=== PATIENT | female | born 1950 | race Caucasian/White ===

== ENCOUNTER → 2017-04-05 | Outpatient (CLI) | payer OTHER ==
[~2017-04-05] MED LIST: LISINOPRIL20 MG PO; METOPROLOL SUCC25 MG PO
--- NOTE | ~2017-04-05 | US6 ---
[facility] A Service of [facility] RADIOLOGY TEXT RESULTS PATIENT: VIANNEY PEÑALOZA LOCATION: [facility] : 46 UNIT #: [id number] AGE: [address]: Justin Castañeda MD SEX: F ORDER DR: [id number] [facility]. [place], [place] [address] [id number] O MR#: [id number] Acc #: [id number] NAME: VIANNEY PEÑALOZA : 1950 SEX: F STUDY DATE/TIME: 04/05/2017 11:45 UNIT: [facility] ROOM: STUDY DESCRIPTION: US Abdominal Limited Attending Physician: Justin Castañeda M.D. Ordering Physician: Justin Castañeda M.D. Primary Care Physician: Justin Castañeda M.D. MEDICAL IMAGING REPORT This report is preliminary unless electronic signature is present EXAM Bladder ultrasound INDICATIONS Bladder incontinence for 1 year TECHNIQUE Lopez-scale color sonographic images were obtained through the bladder, both pre and post void. FINDINGS Bladder does appear somewhat thick-walled with bladder wall measuring up to about 5 mm in thickness. However, I am uncertain if this is related to incomplete distension. Certainly the bladder does not appear particularly distended with urine. Certainly, however correlation with urinalysis and urine cultures is suggested. No post void residual is identified. IMPRESSION 1. Bladder does appears somewhat thick-walled. Some of this may be related to incomplete distension, but certainly correlation with urinalysis and cultures is recommended. 2. No significant postvoid residual is identified. Dictated by... June Lindquist M.D. THIS IS AN ELECTRONICALLY VERIFIED REPORT June Lindquist M.D. at 04/08/2017 4:50 PM AFF/ea [facility] A Service of [facility] RADIOLOGY TEXT RESULTS PATIENT: VIANNEY PEÑALOZA LOCATION: [facility] : 46 UNIT #: [id number] AGE: [address]: Justin Castañeda MD SEX: F ORDER DR: TD: 04/07/2017 12:33 JOB #: [id number] MEDICAL IMAGING REPORT Page 1 of 1 COPY
== END | disposition home or self-care (01) ==
LOC: CWCC 11:07
DX: N81.10 Cystocele, unspecified (principal); D21.9 Benign neoplasm of connective and other soft tissue, unspecified; N39.3 Stress incontinence (female) (male); N32.9 Bladder disorder, unspecified
CPT/HCPCS: 76705